=== PATIENT | female | born 1960 | race Caucasian/White ===

== ENCOUNTER 2019-07-28 17:21 | Emergency (ER) | payer BC ==
[~2019-07-28] VITALS: Ht 172.7 cm; Wt 55.8 kg
[~2019-07-28 17:21] MED LIST: ARMOUR THYROID15 MG PO
[2019-07-28] MEDS ORDERED: ASPIRIN EC81 MG PO (18:40)
--- NOTE | 2019-07-29 18:06 | EKG ---
[facility] [address] [facility] [place], [place] [address] Signed Normal sinus rhythm Anteroseptal infarct , age undetermined Abnormal ECG No previous ECGs available Confirmed by HARLEY DASILVA DO ([id number]) on 07/29/2019 6:05:45 PM Electronically Signed By: HARLEY DASILVA DO 07/29/19 1806 PATIENT NAME: KYA MCGUIRE Electrocardiogram DATE OF : 60 PHYSICIAN: HARLEY DASILVA DO REPORT #: [id number] REPORT IS CONFIDENTIAL AND NOT TO BE RELEASED WITHOUT AUTHORIZATION
== END 2019-07-28 19:01 | disposition home or self-care (01) ==
LOC: ED 17:21
DX: R00.2 Palpitations (principal); E03.9 Hypothyroidism, unspecified; Z79.899 Other long term (current) drug therapy
CPT/HCPCS: 70450; 71045; 80053; 83735; 84439; 84443; 84484; 85025; 93005; 93010; 99285-25

== ENCOUNTER 2019-08-30 13:44 | Emergency (ER) | payer BC ==
[~2019-08-30] VITALS: Ht 172.7 cm; Wt 55.8 kg
[~2019-08-30 13:44] MED LIST changes: +ASPIRIN EC81 MG PO
[2019-08-30] MEDS ORDERED: ONDANSETRON ODT8 MG PO (20:02)
[2019-08-30] MEDS ORDERED: FLOMAX0.4 MG PO (20:02)
[2019-08-30] MEDS ORDERED: KEFLEX500 MG PO (20:02)
[2019-08-30] MEDS ORDERED: NORCO 5-325 TA1 EACH PO (20:02)
== END 2019-08-30 20:55 | disposition home or self-care (01) ==
LOC: ED 13:44
DX: N13.2 Hydronephrosis with renal and ureteral calculous obstruction (principal); F45.8 Other somatoform disorders; E03.9 Hypothyroidism, unspecified; Z79.899 Other long term (current) drug therapy
CPT/HCPCS: 51702; 74177; 80053; 81001; 83690; 84439; 84443; 84484; 85025; 99284-25; J0696; J2060; J3480; J7030; Q9967

== ENCOUNTER 2021-01-03 16:18 | Emergency (ER) | payer BC ==
[~2021-01-03] VITALS: Ht 172.7 cm; Wt 56.7 kg
[~2021-01-03 16:18] MED LIST changes: +FLOMAX0.4 MG PO; +KEFLEX500 MG PO; +NORCO 5-325 TA1 EACH PO; +ONDANSETRON ODT8 MG PO
[2021-01-03] MEDS ORDERED: NP THYROID60 MG PO (16:40)
[2021-01-03] MEDS ORDERED: PROMETHAZINE HC25 M1 PO (18:20)
== END 2021-01-03 18:38 | disposition home or self-care (01) ==
LOC: ED 16:18
DX: U07.1 COVID-19 (principal); E03.9 Hypothyroidism, unspecified; Z79.899 Other long term (current) drug therapy
CPT/HCPCS: 96374; 99283-25; J2550; J7030

== ENCOUNTER → 2022-06-14 | Emergency (ER) | payer BC ==
[~2022-06-14] VITALS: Ht 172.7 cm; Wt 59.0 kg
[~2022-06-14] MED LIST changes: +NP THYROID60 MG PO; +PROMETHAZINE HC25 M1 PO
[2022-06-14 14:36] VITALS: BP 108/78
--- NOTE | 2022-06-15 22:07 | EKG ---
[facility] [address] [facility] [place] [address] Signed Normal sinus rhythm Normal ECG When compared with ECG of 28-JUL-2019 17:27, Criteria for Anteroseptal infarct are no longer present ST elevation now present in Anterior leads Confirmed by Sae Hood MD () on 06/15/2022 10:07:32 PM Electronically Signed By: SAE HOOD MD 06/15/22 220 PATIENT NAME: KYA MCGUIRE Electrocardiogram DATE OF : 60 PHYSICIAN: SAE HOOD MD REPORT #: [id number] REPORT IS CONFIDENTIAL AND NOT TO BE RELEASED WITHOUT AUTHORIZATION
--- NOTE | 2022-06-15 22:10 | EKG ---
[facility] [address] [facility] [place] [address] Signed Normal sinus rhythm Left axis deviation Low voltage QRS Abnormal ECG When compared with ECG of 14-JUN-2022 11:37, ST no longer elevated in Anterior leads Confirmed by Sae Hood MD () on 06/15/2022 10:10:04 PM Electronically Signed By: SAE HOOD MD 06/15/22 2210 PATIENT NAME: KYA MCGUIRE Electrocardiogram DATE OF : 60 PHYSICIAN: SAE HOOD MD REPORT #: [id number] REPORT IS CONFIDENTIAL AND NOT TO BE RELEASED WITHOUT AUTHORIZATION
== END ==
LOC: ED 11:35
DX: I21.9 Acute myocardial infarction, unspecified (principal); E03.9 Hypothyroidism, unspecified; Z79.899 Other long term (current) drug therapy; Z20.822 Contact with and (suspected) exposure to COVID-19
CPT/HCPCS: 36415; 71045; 80053; 83735; 84484; 85025; 85610; 85730; 93005; 93010; 96374; 99285-25; A9270; C9803; J1644; U0003